=== PATIENT | female | born 1970 | race African-American/Black ===

== ENCOUNTER 2017-10-04 08:02 | Emergency (ER) | payer BC ==
[~2017-10-04] VITALS: Ht 160 cm; Wt 54.4 kg
[2017-10-04 08:43] LABS: URINE BILIRUBIN 1+ (Negative); URINE BLOOD 3+ (Negative); URINE CLARITY CLEAR; URINE COLOR YELLOW; URINE GLUCOSE-RANDOM* 2+ (Negative); URINE KETONES 3+ (Negative); URINE LEUKOCYTES-REFLEX NEGATIVE (Negative); URINE NITRITE-REFLEX NEGATIVE (Negative); URINE PROTEIN (DIPSTICK) 2+ (Negative); URINE SPECIFIC GRAVITY >= 1.030 (1.005-1.035); URINE UROBILINOGEN 0.2 E.U./dl (0.2-1.0)
[2017-10-04 08:45] LABS: ICTOTEST (BILI CONFIRMATORY) Negative (Negative)
[2017-10-04 08:57] LABS: HYALINE CASTS 0-3 Few /LPF (None Seen); SQUAMOUS 4-10 Moderate /LPF (0-3)
[2017-10-04 08:58] LABS: BACTERIA-REFLEX 1-9 Few /HPF (None Seen); CASTS None Seen /LPF (None Seen); CRYSTALS None Seen /LPF (None Seen); URINE RBC 3-10 Few /HPF (0-2); YEAST-REFLEX Present (None Seen)
[2017-10-04 08:59] LABS: URINE WBC-REFLEX None Seen /HPF (0-5)
[2017-10-04 10:01] LABS: ABSOLUTE NEUTROPHILS 11.1 thou/uL (1.4-8.2); BASOPHILS 0.6 % (0.0-2.0); EOSINOPHILS 0.1 % (0.0-3.0); HEMATOCRIT 49.1 % (37.0-47.0); HEMOGLOBIN 15.9 gm/dL (12.0-15.0); LYMPHOCYTES 4.3 % (24.0-44.0); MCH 30.2 pg (26.0-34.0); MCHC 32.3 g/dL (28.0-37.0); MCV 93.6 fL (80.0-100.0); MONOCYTES 6.1 % (1.0-8.0); PLATELET COUNT 350 thou/uL (150-400); POLYS 88.9 % (36.0-66.0); RBC 5.25 mil/uL (4.20-5.00); RDW 14.2 % (10.5-14.5); WBC 12.5 thou/uL (4.0-11.0)
[2017-10-04 10:08] LABS: ANION GAP 24 mmol/L (7-16); BUN 11 mg/dL (7-18); CALCIUM 9.5 mg/dL (8.5-10.1); CHLORIDE 97 mmol/L (98-107); CREATININE 1.1 mg/dL (0.6-1.0); GLUCOSE 315 mg/dL (74-106); POTASSIUM 4.9 mmol/L (3.5-5.1); SODIUM 129 mmol/L (136-145)
[2017-10-04 10:14] LABS: ALBUMIN 3.8 g/dL (3.4-5.0); DIRECT BILIRUBIN < 0.1 mg/dL (<0.1-0.3); LIPASE 31 U/L (73-393); MAGNESIUM 1.8 mg/dL (1.8-2.4); SGOT 13 U/L (15-37); SGPT 18 U/L (30-65); TOTAL BILIRUBIN 0.3 mg/dL (<0.1-1.0); TOTAL PROTEIN 8.8 g/dL (6.4-8.2)
[2017-10-04 10:16] LABS: CO2 8 mmol/L (21-32)
[2017-10-04] MEDS ORDERED: ZOFRAN ODT4 MG PO (11:49)
[2017-10-04] MEDS ORDERED: BENTYL 20 MG TA20 M1 PO (11:49)
[2017-10-04] MEDS ORDERED: NORCO 5-325 TA1 EACH PO (11:49)
[2017-10-04 12:05] VITALS: BP 109/71
== END 2017-10-04 12:06 | disposition home or self-care (01) ==
LOC: ER 08:02
PROVIDERS: Emergency Medicine
DX: E86.0 Dehydration (principal); K51.90 Ulcerative colitis, unspecified, without complications; Z88.0 Allergy status to penicillin

== ENCOUNTER 2017-10-07 07:28 | Inpatient (IN) | payer BC ==
[~2017-10-07] VITALS: Ht 162.6 cm; Wt 48.5 kg
[2017-10-07] VITALS (50 sets, daily range): BP systolic 88–136; BP diastolic 53–85
--- NOTE | ~2017-10-07 | EKG ---
[place] [address] [facility] [place] [address] ELECTROCARDIOGRAM REPORT Name: BECCA SINGH [id number] Admission: 10/07/17 Attend Phys: Discharge: Date of : 68 Report #: [id number] THIS REPORT FOR: //name// [facility] ED Test Date: 2017-10-07 Test Time: 08:03:57 Pat Name: BECCA SINGH Department: Room: Gender: F Bdr: aj : 1970 Requested By: Carlos Gonzalez Order Number: [id number] MD: Michael Vasquez Measurements Intervals [place] Rate: 100 P: 80 NE: 131 QRS: 75 QRSD: 82 T: -44 QT: 364 QTc: 470 Interpretive Statements Sinus tachycardia Nonspecific ST and T wave abnormality No previous ECG available for comparison Electronically Signed On 10-07-2017 8:55:32 CDT by Michael Vasquez [email or web address] <ELECTRONICALLY SIGNED> By: Michael Vasquez MD, [facility] 10/07/17 [id number] Michael Vasquez MD, FAC /EPI
[~2017-10-07 07:28] MED LIST: BENTYL 20 MG TA20 M1 PO; NORCO 5-325 TA1 EACH PO; ZOFRAN ODT4 MG PO
[2017-10-07 08:39] LABS: HEMATOCRIT 47.9 % (37.0-47.0); HEMOGLOBIN 15.3 gm/dL (12.0-15.0); MCV 93.7 fL (80.0-100.0); PLATELET COUNT 344 thou/uL (150-400); RBC 5.11 mil/uL (4.20-5.00); RDW 15.3 % (10.5-14.5); WBC 14.5 thou/uL (4.0-11.0)
[2017-10-07 08:44] LABS: URINE BILIRUBIN 1+ (Negative); URINE BLOOD 2+ (Negative); URINE CLARITY CLEAR; URINE COLOR YELLOW; URINE GLUCOSE-RANDOM* 2+ (Negative); URINE KETONES 3+ (Negative); URINE LEUKOCYTES-REFLEX NEGATIVE (Negative); URINE NITRITE-REFLEX NEGATIVE (Negative); URINE PROTEIN (DIPSTICK) 1+ (Negative); URINE SPECIFIC GRAVITY >= 1.030 (1.005-1.035); URINE UROBILINOGEN 0.2 E.U./dl (0.2-1.0)
[2017-10-07 08:45] LABS: ANION GAP 29 mmol/L (7-16); BUN 17 mg/dL (7-18); CALCIUM 8.8 mg/dL (8.5-10.1); CHLORIDE 98 mmol/L (98-107); CREATININE 0.9 mg/dL (0.6-1.0); GLUCOSE 328 mg/dL (74-106); SODIUM 132 mmol/L (136-145)
[2017-10-07 08:48] LABS: POTASSIUM 4.2 mmol/L (3.5-5.1)
[2017-10-07 08:48] LABS: ICTOTEST (BILI CONFIRMATORY) Negative (Negative)
[2017-10-07 08:51] LABS: ALBUMIN 3.8 g/dL (3.4-5.0); DIRECT BILIRUBIN < 0.1 mg/dL (<0.1-0.3); LIPASE 94 U/L (73-393); SGOT 15 U/L (15-37); SGPT 17 U/L (30-65); TOTAL BILIRUBIN 0.4 mg/dL (<0.1-1.0); TOTAL PROTEIN 8.1 g/dL (6.4-8.2)
[2017-10-07 09:01] LABS: CO2 < 5 mmol/L (21-32)
[2017-10-07 09:06] LABS: HYALINE CASTS 4-10 Moderate /LPF (None Seen); SQUAMOUS 4-10 Moderate /LPF (0-3)
[2017-10-07 09:07] LABS: BACTERIA-REFLEX 1-9 Few /HPF (None Seen); CRYSTALS None Seen /LPF (None Seen); URINE RBC 0-2 Rare /HPF (0-2); URINE WBC-REFLEX 0-5 Rare /HPF (0-5)
[2017-10-07 09:08] LABS: FINE GRANULAR CASTS 0-3 Few /LPF (None Seen)
[2017-10-07 09:25] LABS: MYELOCYTES 4 %
[2017-10-07 09:38] LABS: BE(vivo) -24.8 mmol/L (-2 to +3); HCO3 3.6 mmol/L (22.0-26.0); PCO2 13.3 mmHg (35.0-45.0); pH 7.053 (7.360-7.450); sO2 97.5 % (92.0-98.0)
[2017-10-07 09:42] LABS: ABSOLUTE NEUTROPHILS 10.9 thou/uL (1.4-8.2); ANISOCYTOSIS 1+; METAMYELOCYTES 4 %
[2017-10-07 13:21] LABS: BE(vivo) -23.3 mmol/L (-2 to +3); HCO3 3.8 mmol/L (22.0-26.0); PO2 131.1 mmHg (80.0-100.0); sO2 97.7 % (92.0-98.0)
[2017-10-07 13:22] LABS: PCO2 12.1 mmHg (35.0-45.0); pH 7.112 (7.360-7.450)
[2017-10-07 13:46] LABS: ALBUMIN 3.1 g/dL (3.4-5.0); ANION GAP 24 mmol/L (7-16); BUN 15 mg/dL (7-18); CALCIUM 7.7 mg/dL (8.5-10.1); CHLORIDE 106 mmol/L (98-107); CREATININE 0.9 mg/dL (0.6-1.0); GLUCOSE 201 mg/dL (74-106); PHOSPHORUS 0.9 mg/dL (2.5-4.9); SODIUM 135 mmol/L (136-145)
[2017-10-07 13:50] LABS: CO2 < 5 mmol/L (21-32); POTASSIUM 2.8 mmol/L (3.5-5.1)
[2017-10-07 17:19] LABS: ALBUMIN 2.6 g/dL (3.4-5.0); CALCIUM 7.4 mg/dL (8.5-10.1); CREATININE 0.7 mg/dL (0.6-1.0); PHOSPHORUS 0.9 mg/dL (2.5-4.9)
[2017-10-07 17:25] LABS: POTASSIUM 4.3 mmol/L (3.5-5.1)
[2017-10-07 22:05] LABS: ALBUMIN 2.8 g/dL (3.4-5.0); CALCIUM 7.8 mg/dL (8.5-10.1); CREATININE 0.7 mg/dL (0.6-1.0); MAGNESIUM 1.8 mg/dL (1.8-2.4); PHOSPHORUS 0.4 mg/dL (2.5-4.9)
[2017-10-07 22:07] LABS: POTASSIUM 3.3 mmol/L (3.5-5.1)
[2017-10-07 23:40] LABS: BE(vivo) -7.9 mmol/L (-2 to +3); HCO3 15.7 mmol/L (22.0-26.0); PCO2 27.2 mmHg (35.0-45.0); PO2 95.2 mmHg (80.0-100.0); sO2 97.3 % (92.0-98.0)
[2017-10-08] VITALS (19 sets, daily range): BP systolic 84–119; BP diastolic 50–77
[2017-10-08 04:35] LABS: HEMATOCRIT 35.3 % (37.0-47.0); MCH 30.5 pg (26.0-34.0); MCHC 34.7 g/dL (28.0-37.0); RBC 4.01 mil/uL (4.20-5.00); RDW 14.3 % (10.5-14.5); WBC 8.6 thou/uL (4.0-11.0)
[2017-10-08 04:50] LABS: CALCIUM 8.3 mg/dL (8.5-10.1); CREATININE 0.7 mg/dL (0.6-1.0); POTASSIUM 4.1 mmol/L (3.5-5.1)
[2017-10-08 04:53] LABS: MAGNESIUM 1.9 mg/dL (1.8-2.4); PHOSPHORUS 0.7 mg/dL (2.5-4.9)
[2017-10-08 04:56] LABS: HEMOGLOBIN 12.2 gm/dL (12.0-15.0); MCV 87.9 fL (80.0-100.0)
[2017-10-09 04:15] VITALS: BP 123/66
[2017-10-09 08:00] VITALS: BP 112/75
[2017-10-09 19:43] VITALS: BP 98/61
[2017-10-10 04:32] VITALS: BP 108/68
[2017-10-10 05:39] LABS: HEMATOCRIT 33.5 % (37.0-47.0); HEMOGLOBIN 11.7 gm/dL (12.0-15.0); MCH 30.2 pg (26.0-34.0); MCV 86.4 fL (80.0-100.0); RBC 3.88 mil/uL (4.20-5.00); RDW 14.1 % (10.5-14.5); WBC 10.1 thou/uL (4.0-11.0)
[2017-10-10 05:52] LABS: ALBUMIN 2.7 g/dL (3.4-5.0); CALCIUM 8.4 mg/dL (8.5-10.1); CREATININE 0.6 mg/dL (0.6-1.0); MAGNESIUM 1.8 mg/dL (1.8-2.4); TOTAL BILIRUBIN 0.3 mg/dL (<0.1-1.0); TOTAL PROTEIN 6.1 g/dL (6.4-8.2)
[2017-10-10 05:58] LABS: POTASSIUM 2.9 mmol/L (3.5-5.1)
[2017-10-10 08:00] VITALS: BP 100/56
[2017-10-10 16:08] VITALS: BP 111/73
[2017-10-10 19:57] VITALS: BP 93/63
[2017-10-11 04:00] VITALS: BP 120/75
[2017-10-11 06:42] LABS: HEMATOCRIT 30.1 % (37.0-47.0); HEMOGLOBIN 10.5 gm/dL (12.0-15.0); MCH 30.5 pg (26.0-34.0); MCHC 34.7 g/dL (28.0-37.0); MCV 87.7 fL (80.0-100.0); RBC 3.44 mil/uL (4.20-5.00); RDW 14.4 % (10.5-14.5); WBC 14.8 thou/uL (4.0-11.0)
[2017-10-11 06:55] LABS: CALCIUM 7.8 mg/dL (8.5-10.1); CREATININE 0.5 mg/dL (0.6-1.0); MAGNESIUM 2.1 mg/dL (1.8-2.4)
[2017-10-11 07:00] LABS: POTASSIUM 2.8 mmol/L (3.5-5.1)
[2017-10-11 08:00] VITALS: BP 106/69
[2017-10-11 16:15] VITALS: BP 91/61
[2017-10-11 20:30] VITALS: BP 99/67
[2017-10-12 04:22] VITALS: BP 93/64
[2017-10-12 05:38] LABS: HEMATOCRIT 30.2 % (37.0-47.0); HEMOGLOBIN 10.2 gm/dL (12.0-15.0); MCH 29.7 pg (26.0-34.0); MCHC 33.8 g/dL (28.0-37.0); MCV 87.9 fL (80.0-100.0); RBC 3.43 mil/uL (4.20-5.00); RDW 14.4 % (10.5-14.5); WBC 19.2 thou/uL (4.0-11.0)
[2017-10-12 05:43] LABS: CALCIUM 8.2 mg/dL (8.5-10.1); CREATININE 0.5 mg/dL (0.6-1.0); POTASSIUM 3.7 mmol/L (3.5-5.1)
[2017-10-12 07:45] VITALS: BP 89/64
[2017-10-12 17:49] VITALS: BP 85/56
[2017-10-12 19:54] VITALS: BP 96/77
[2017-10-13 04:23] VITALS: BP 90/58
[2017-10-13 05:34] LABS: HEMOGLOBIN 9.5 gm/dL (12.0-15.0); MCH 30.3 pg (26.0-34.0); MCV 89.1 fL (80.0-100.0); RBC 3.14 mil/uL (4.20-5.00); RDW 14.5 % (10.5-14.5); WBC 20.3 thou/uL (4.0-11.0)
[2017-10-13 05:46] LABS: CALCIUM 8.1 mg/dL (8.5-10.1); CREATININE 0.5 mg/dL (0.6-1.0); MAGNESIUM 1.9 mg/dL (1.8-2.4); PHOSPHORUS 3.1 mg/dL (2.5-4.9); POTASSIUM 3.5 mmol/L (3.5-5.1)
[2017-10-13 07:16] VITALS: BP 94/60
[2017-10-13] MEDS ORDERED: LEVEMIR SUBQ (12:18)
[2017-10-13] MEDS ORDERED: NOVOLOG100 UNIT/1 SUBQ (12:19)
[2017-10-13] MEDS ORDERED: CIPRO500 MG PO (12:20)
[2017-10-13] MEDS ORDERED: PREDNISONE 10 M10 MG PO (12:20)
[2017-10-13] MEDS ORDERED: FLAGYL500 MG PO (12:20)
[2017-10-13] MEDS ORDERED: DELZICOL400 M1 PO (12:22)
[2017-10-13 12:27] VITALS: BP 94/60
== END 2017-10-13 13:05 | disposition home or self-care (01) | DRG 385 ==
LOC: ER 07:28 → EROBS 09:39 → ICU 09:39 → 4E 10-08 18:17
PROVIDERS: Emergency Medicine; Internal Medicine; Nurse Practitioner Acute Care
PROC: 02HV33Z Insertion of Infusion Device into Superior Vena Cava, Percutaneous Approach (ICD-10-PCS; principal; 2017-10-07)
DX: K51.90 Ulcerative colitis, unspecified, without complications (principal); E11.10 Type 2 diabetes mellitus with ketoacidosis without coma; E43 Unspecified severe protein-calorie malnutrition; Z68.1 Body mass index [BMI] 19.9 or less, adult; E86.0 Dehydration; E83.39 Other disorders of phosphorus metabolism; D72.829 Elevated white blood cell count, unspecified; E87.6 Hypokalemia; Z88.0 Allergy status to penicillin; Z87.891 Personal history of nicotine dependence; Z79.899 Other long term (current) drug therapy
CPT/HCPCS: 10078; 10783; 27000

== ENCOUNTER → 2019-02-10 | Outpatient (CLI) | payer BC ==
[~2019-02-10] MED LIST changes: +CIPRO500 MG PO; +DELZICOL400 M1 PO; +FARXIGA5 MG PO; +FLAGYL500 MG PO; +LEVEMIR SUBQ; +NORFLEX100 MG PO; +NOVOLOG100 UNIT/1 SUBQ; +PREDNISONE 10 M10 MG PO; +SULFASALAZINE500 M4 PO
== END ==
LOC: RAD 11:26
DX: M43.17 Spondylolisthesis, lumbosacral region (principal); M54.16 Radiculopathy, lumbar region; M54.31 Sciatica, right side

== ENCOUNTER 2019-10-21 15:52 | Emergency (ER) | payer BC ==
[~2019-10-21] VITALS: Ht 160 cm; Wt 65.8 kg
[2019-10-21] MEDS ORDERED: NEURONTIN 300M300 M2 PO (16:03)
[2019-10-21] MEDS ORDERED: LIDOCAINE PAIN1 EACH TRANSDERM (16:48)
[2019-10-21] MEDS ORDERED: NORCO 5-325 TA1 EAC1 PO (16:48)
[2019-10-21 17:01] VITALS: BP 124/81
== END 2019-10-21 17:02 | disposition home or self-care (01) ==
LOC: ER 15:52
DX: S22.31XA Fracture of one rib, right side, initial encounter for closed fracture (principal); E11.9 Type 2 diabetes mellitus without complications; Z79.4 Long term (current) use of insulin; Z79.899 Other long term (current) drug therapy; Z88.0 Allergy status to penicillin; X50.9XXA Other and unspecified overexertion or strenuous movements or postures, initial encounter; Y93.89 Activity, other specified; Y92.89 Other specified places as the place of occurrence of the external cause; Y99.8 Other external cause status

== ENCOUNTER → 2020-04-02 | Outpatient (CLI) | payer BC ==
[~2020-04-02] MED LIST changes: +LIDOCAINE PAIN1 EACH TRANSDERM; +NEURONTIN 300M300 M2 PO; +NORCO 5-325 TA1 EAC1 PO
== END ==
LOC: BC 10:43
PROVIDERS: ATTEND Family Medicine
DX: Z12.31 Encounter for screening mammogram for malignant neoplasm of breast (principal)